=== PATIENT | female | born 1930 | race African-American/Black ===

== ENCOUNTER 2017-05-18 14:32 | Inpatient (IN) ==
[2017-05-18] MEDS ORDERED: ACETAMINOPHEN 325 MG TABLET PO PRN (15:42)
[2017-05-18] MEDS ORDERED: ONDANSETRON 4 MG/2 ML VIAL IV PRN (15:42)
[2017-05-18] MEDS ORDERED: DEXTROSE 50% 25 GM/50 ML VIAL IV PRN (15:47)
[2017-05-18] MEDS ORDERED: GLUCAGON 1 MG VIAL IM PRN (15:47)
[2017-05-18 17:32] LABS: Basophils % 0.6 % (0.0-0.8); Eosinophils # 0.2 10*3/uL (0.0-0.87); Eosinophils % 3.3 % (0.00-10.9); Hematocrit 28.9 VOL% (35.7-47.0); Hemoglobin 9.4 GM/DL (12.0-16.0); Immature Granulocytes % 0.4 %; Immature Granulocytes Absolute 0.03 #; Lymphocytes # 2.4 10*3/uL (1.4-4.0); Lymphocytes % 32.9 % (21.3-54.2); Mean Corpuscular HGB Conc 32.5 GM/DL (32-36); Mean Corpuscular Hemoglobin 31 PG (27-34); Mean Corpuscular Volume 96.3 FL (87-102); Mean Platelet Volume 10.6 FL (9.6-12.0); Monocytes # 0.5 10*3/uL (0.11-0.8); Monocytes % 6.8 % (1.7-12.7); Neutrophils # 4.1 10*3/uL (1.4-7.4); Platelet Count 222 T/CUMM (130-400); Red Cell Distribution Width 15.4 % (9.3-17.3); White Blood Count 7.2 T/CUMM (4-12)
[2017-05-18] MEDS: SODIUM CHLORIDE 0.45% 1,000 ML IV SCH (17:39)
[2017-05-18] MEDS: INSULIN REGULAR 100 UNIT/ML SUBCUT SCH (17:39)
[2017-05-18] MEDS: PANTOPRAZOLE 40 MG VIAL IV SCH (17:39)
[2017-05-18 18:01] LABS: Alanine Aminotransferase 24 U/L (13-56); Albumin 4.2 G/DL (3.4-5.0); Alkaline Phosphatase 87 U/L (45-117); Aspartate Amino Transferase 26 U/L (0-37); Bilirubin,Total < 0.39 MG/DL (0.2-1.0); Blood Urea Nitrogen 22 MG/DL (7-18); Calcium 9.8 MG/DL (8.5-10.1); Glucose 114 MG/DL (74-106); Osmolality,Calculated 284.3 MOS/KG (273-304); Potassium 3.7 MMOL/L (3.5-5.1); Sodium 141 MMOL/L (136-145); Total Protein 7.4 G/DL (6.4-8.3)
[2017-05-18] MEDS: DOCUSATE SODIUM 100 MG CAPSULE PO SCH (20:33)
[2017-05-19 01:03] LABS: Apearance,Urine CLEAR (Clear); Bilirubin,Urine Negative (Negative); Blood, Urine Negative (Negative); Glucose,Urine (UA) Negative (Negative); Ketones,Urine Negative (Negative); Nitrite,Urine Negative (Negative); Protein,Urine Negative; RBC,Urine <1 /HPF (0-4); Squamous Epithelial Cell,Urine Occasional /HPF (0-10); Urine Color Straw (Yellow); Urine Specific Gravity 1.005 (1.001-1.035); Urine Urobilinogen < 2.0 EU/DL (0.2-1.0); WBC,Urine <1 /HPF (0-6)
[2017-05-19] MEDS: INSULIN REGULAR 100 UNIT/ML SUBCUT SCH ×4 (01:19→17:17)
[2017-05-19 06:44] LABS: Basophils % 0.5 % (0.0-0.8); Eosinophils # 0.3 10*3/uL (0.0-0.87); Eosinophils % 4.7 % (0.00-10.9); Hematocrit 25.1 VOL% (35.7-47.0); Hemoglobin 8.1 GM/DL (12.0-16.0); Immature Granulocytes % 0.5 %; Immature Granulocytes Absolute 0.03 #; Lymphocytes # 2.1 10*3/uL (1.4-4.0); Lymphocytes % 37.2 % (21.3-54.2); Mean Corpuscular HGB Conc 32.3 GM/DL (32-36); Mean Corpuscular Hemoglobin 31 PG (27-34); Mean Corpuscular Volume 94.7 FL (87-102); Monocytes # 0.6 10*3/uL (0.11-0.8); Monocytes % 11.1 % (1.7-12.7); Neutrophils # 2.7 10*3/uL (1.4-7.4); Platelet Count 200 T/CUMM (130-400); Red Blood Count 2.65 MC/CUMM (3.8-5.5); Red Cell Distribution Width 15.5 % (9.3-17.3); White Blood Count 5.8 T/CUMM (4-12)
[2017-05-19] MEDS: SODIUM CHLORIDE 0.45% 1,000 ML IV SCH ×2 (06:46→14:45)
[2017-05-19 07:22] LABS: Calcium 9.2 MG/DL (8.5-10.1); Magnesium 2.2 MG/DL (1.8-2.4)
[2017-05-19] MEDS: DOCUSATE SODIUM 100 MG CAPSULE PO SCH ×2 (08:05→21:57)
[2017-05-19] MEDS: PANTOPRAZOLE 40 MG VIAL IV SCH (08:48)
[2017-05-19] MEDS ORDERED: BISACODYL 5 MG TABLET PO ONE (12:00)
[2017-05-19] MEDS ORDERED: POLYETHYLENE GLYCOL POWDER 255 GM BOTTLE PO ONE (18:00)
[2017-05-19 22:40] LABS: Hematocrit 26.8 VOL% (35.7-47.0); Hemoglobin 8.9 GM/DL (12.0-16.0)
[2017-05-20] MEDS: SODIUM CHLORIDE 0.45% 1,000 ML IV SCH ×2 (02:59→20:27)
[2017-05-20] MEDS: INSULIN REGULAR 100 UNIT/ML SUBCUT SCH ×4 (03:00→17:43)
[2017-05-20 06:28] LABS: Basophils % 0.5 % (0.0-0.8); Eosinophils # 0.4 10*3/uL (0.0-0.87); Eosinophils % 5.4 % (0.00-10.9); Hematocrit 25.5 VOL% (35.7-47.0); Hemoglobin 8.2 GM/DL (12.0-16.0); Immature Granulocytes % 0.2 %; Immature Granulocytes Absolute 0.01 #; Lymphocytes # 2.2 10*3/uL (1.4-4.0); Lymphocytes % 33.6 % (21.3-54.2); Mean Corpuscular HGB Conc 32.2 GM/DL (32-36); Mean Corpuscular Hemoglobin 31 PG (27-34); Mean Corpuscular Volume 95.5 FL (87-102); Mean Platelet Volume 10.8 FL (9.6-12.0); Monocytes # 0.7 10*3/uL (0.11-0.8); Monocytes % 10.3 % (1.7-12.7); Neutrophils # 3.2 10*3/uL (1.4-7.4); Platelet Count 203 T/CUMM (130-400); Red Blood Count 2.67 MC/CUMM (3.8-5.5); Red Cell Distribution Width 15.6 % (9.3-17.3); White Blood Count 6.5 T/CUMM (4-12)
[2017-05-20 07:02] LABS: Calcium 9.1 MG/DL (8.5-10.1); Magnesium 2.2 MG/DL (1.8-2.4); Osmolality,Calculated 284.8 MOS/KG (273-304); Potassium 3.8 MMOL/L (3.5-5.1)
[2017-05-20] MEDS ORDERED: MAGNESIUM CITRATE 300 ML BOTTLE PO ONE ×2 (08:40→08:51)
[2017-05-20] MEDS: PANTOPRAZOLE 40 MG VIAL IV SCH (08:57)
[2017-05-20] MEDS ORDERED: LIDOCAINE 2% 5 ML VIAL ONE (12:21)
[2017-05-20] MEDS ORDERED: PROPOFOL 200 MG/20 ML VIAL IV ONE (12:21)
[2017-05-20] MEDS: DOCUSATE SODIUM 100 MG CAPSULE PO SCH ×2 (13:58→21:44)
[2017-05-20] MEDS ORDERED: SODIUM CHLORIDE 0.9% 1,000 ML IV PRN (15:58)
[2017-05-21] MEDS: INSULIN REGULAR 100 UNIT/ML SUBCUT SCH ×4 (00:18→19:02)
[2017-05-21] MEDS: SODIUM CHLORIDE 0.45% 1,000 ML IV SCH ×3 (02:19→22:39)
[2017-05-21 04:35] LABS: Basophils % 0.4 % (0.0-0.8); Eosinophils # 0.3 10*3/uL (0.0-0.87); Eosinophils % 3.7 % (0.00-10.9); Hematocrit 29.8 VOL% (35.7-47.0); Hemoglobin 9.7 GM/DL (12.0-16.0); Immature Granulocytes % 0.4 %; Immature Granulocytes Absolute 0.03 #; Lymphocytes # 2.1 10*3/uL (1.4-4.0); Lymphocytes % 26.2 % (21.3-54.2); Mean Corpuscular HGB Conc 32.6 GM/DL (32-36); Mean Corpuscular Hemoglobin 30 PG (27-34); Mean Corpuscular Volume 93.1 FL (87-102); Mean Platelet Volume 11.1 FL (9.6-12.0); Monocytes # 0.7 10*3/uL (0.11-0.8); Monocytes % 8.3 % (1.7-12.7); Neutrophils # 4.8 10*3/uL (1.4-7.4); Platelet Count 193 T/CUMM (130-400); Red Cell Distribution Width 16.1 % (9.3-17.3); White Blood Count 7.9 T/CUMM (4-12)
[2017-05-21 05:06] LABS: Magnesium 2.5 MG/DL (1.8-2.4); Osmolality,Calculated 287.7 MOS/KG (273-304)
[2017-05-21] MEDS: PANTOPRAZOLE 40 MG VIAL IV SCH (09:08)
[2017-05-21] MEDS: SKIN HEALING OINT (AQUAPHOR) 50 GM TUBE TOP SCH (12:01)
[2017-05-21] MEDS: DOCUSATE SODIUM 100 MG CAPSULE PO SCH ×2 (12:05→20:17)
[2017-05-22] MEDS: INSULIN REGULAR 100 UNIT/ML SUBCUT SCH ×4 (00:25→18:47)
[2017-05-22 06:34] LABS: Basophils % 0.3 % (0.0-0.8); Eosinophils # 0.3 10*3/uL (0.0-0.87); Eosinophils % 4.5 % (0.00-10.9); Hematocrit 29.8 VOL% (35.7-47.0); Hemoglobin 9.9 GM/DL (12.0-16.0); Immature Granulocytes % 0.3 %; Immature Granulocytes Absolute 0.02 #; Lymphocytes # 1.8 10*3/uL (1.4-4.0); Lymphocytes % 25.7 % (21.3-54.2); Mean Corpuscular HGB Conc 33.2 GM/DL (32-36); Mean Corpuscular Hemoglobin 31 PG (27-34); Mean Corpuscular Volume 92.8 FL (87-102); Mean Platelet Volume 10.8 FL (9.6-12.0); Monocytes # 0.6 10*3/uL (0.11-0.8); Monocytes % 8.5 % (1.7-12.7); Neutrophils # 4.1 10*3/uL (1.4-7.4); Neutrophils % 60.7 % (38.7-73.9); Platelet Count 187 T/CUMM (130-400); Red Blood Count 3.21 MC/CUMM (3.8-5.5); Red Cell Distribution Width 16.1 % (9.3-17.3); White Blood Count 6.8 T/CUMM (4-12)
[2017-05-22 07:03] LABS: Magnesium 2.4 MG/DL (1.8-2.4); Osmolality,Calculated 287.7 MOS/KG (273-304); Potassium 4.1 MMOL/L (3.5-5.1)
[2017-05-22] MEDS: SODIUM CHLORIDE 0.45% 1,000 ML IV SCH ×2 (08:44→18:42)
[2017-05-22] MEDS: PANTOPRAZOLE 40 MG VIAL IV SCH (08:45)
[2017-05-22] MEDS: DOCUSATE SODIUM 100 MG CAPSULE PO SCH ×2 (08:45→21:21)
[2017-05-22] MEDS: SKIN HEALING OINT (AQUAPHOR) 50 GM TUBE TOP SCH (08:50)
[2017-05-23] MEDS: INSULIN REGULAR 100 UNIT/ML SUBCUT SCH ×3 (00:12→12:51)
[2017-05-23] MEDS: SODIUM CHLORIDE 0.45% 1,000 ML IV SCH ×2 (05:53→08:45)
[2017-05-23 06:42] LABS: Basophils % 0.5 % (0.0-0.8); Eosinophils # 0.3 10*3/uL (0.0-0.87); Eosinophils % 5.2 % (0.00-10.9); Hematocrit 29.5 VOL% (35.7-47.0); Hemoglobin 9.7 GM/DL (12.0-16.0); Immature Granulocytes % 0.2 %; Immature Granulocytes Absolute 0.01 #; Lymphocytes # 1.8 10*3/uL (1.4-4.0); Lymphocytes % 27.3 % (21.3-54.2); Mean Corpuscular HGB Conc 32.9 GM/DL (32-36); Mean Corpuscular Hemoglobin 31 PG (27-34); Mean Corpuscular Volume 92.8 FL (87-102); Mean Platelet Volume 10.4 FL (9.6-12.0); Monocytes # 0.6 10*3/uL (0.11-0.8); Monocytes % 9.4 % (1.7-12.7); Neutrophils # 3.7 10*3/uL (1.4-7.4); Neutrophils % 57.4 % (38.7-73.9); Platelet Count 182 T/CUMM (130-400); Red Blood Count 3.18 MC/CUMM (3.8-5.5); Red Cell Distribution Width 15.6 % (9.3-17.3); White Blood Count 6.5 T/CUMM (4-12)
[2017-05-23] MEDS: DOCUSATE SODIUM 100 MG CAPSULE PO SCH (08:44)
[2017-05-23] MEDS: PANTOPRAZOLE 40 MG VIAL IV SCH (08:44)
[2017-05-23] MEDS: SKIN HEALING OINT (AQUAPHOR) 50 GM TUBE TOP SCH (08:45)
[2017-05-23 13:59] VITALS: BP 148/71
== END 2017-05-23 15:15 | disposition home or self-care (01) | DRG 378 ==
LOC: N.5E 15:00
PROVIDERS: ADMIT Family Medicine; ATTEND Family Medicine